=== PATIENT | male | born 1965 | race African-American/Black ===

== ENCOUNTER 2025-05-06 15:23 | Inpatient (IN) | payer OTHER ==
[2025-05-06] MEDS ORDERED: guaiFENesin 600 MG TABLET.ER (FP) PO PRN (15:26)
[2025-05-06] MEDS ORDERED: METHOCARBAMOL 500 MG TABLET PO PRN (15:26)
[2025-05-06] MEDS ORDERED: MAG HYDROX/AL HYDROX/SIMETH 30 ML UNIT-DOSE CUP PO PRN (15:26)
[2025-05-06] MEDS ORDERED: POLYETHYLENE GLYCOL (HEALTHYLAX) 3350 17 GM PACKET PO PRN (15:26)
[2025-05-06] MEDS ORDERED: IBUPROFEN 400 MG TABLET (FP) PO PRN (15:26)
[2025-05-06] MEDS ORDERED: MAGNESIUM HYDROX 2400MG/30ML ORAL SUSPENSION 30 ML CUP PO PRN (15:26)
[2025-05-06] MEDS ORDERED: BENZOCAINE/MENTHOL (CHLORASEPTIC ) LOZENGE MM PRN (15:26)
[2025-05-06] MEDS ORDERED: BENZONATATE 200 MG CAPSULE PO PRN (15:26)
[2025-05-06] MEDS ORDERED: IBUPROFEN 600 MG TABLET (FP) PO PRN (15:26)
[2025-05-06] MEDS ORDERED: LOPERAMIDE HCL 2 MG CAPSULE PO PRN (15:26)
[2025-05-06] MEDS: THIAMINE 100 MG TABLET PO SCH (21:42)
[2025-05-06] MEDS: MELATONIN 5 MG TABLETS PO SCH (21:42)
[2025-05-06] MEDS: ACETAMINOPHEN 325 MG TABLET (FP) PO PRN (21:43)
[2025-05-07] MEDS: PRENATAL VITAMINS W/ FOLIC ACID TABLET (FP) PO SCH (06:00)
[2025-05-07] MEDS ORDERED: NICOTINE POLACRILEX 4 MG GUM BUC PRN (14:09)
[2025-05-07] MEDS: NICOTINE 14 MG/24 HOURS TOPICAL PATCH TD SCH (14:53)
[2025-05-07] MEDS: amLODIPine BESYLATE 2.5 MG TABLET (FP) PO SCH (14:53)
[2025-05-07] MEDS: ALBUTEROL SO4 HFA INHALER IH PRN (14:54)
[2025-05-07] MEDS: MIRTAZAPINE 15 MG TABLET (FP) PO SCH (21:32)
[2025-05-08] MEDS: amLODIPine BESYLATE 2.5 MG TABLET (FP) PO ONE (15:01)
[2025-05-09] MEDS: amLODIPine BESYLATE 5 MG TABLET (FP) PO SCH (10:12)
[2025-05-10 20:42] VITALS: RESP 18
[2025-05-10] MEDS: hydrOXYzine PAMOATE 25 MG CAPSULE (FP) PO PRN (21:14)
[2025-05-12 09:13] VITALS: PULSE 74
[2025-05-12] MEDS: amLODIPine BESYLATE 5 MG TABLET (FP) PO SCH (11:24)
[2025-05-12 12:40] LABS: GLUCOSE,RANDOM 83 mg/dL (74-106); TOT PROT 8.0 g/dl (6.4-8.2)
[2025-05-12 12:41] LABS: CO2 28 mmol/L (21-32)
[2025-05-12 12:43] LABS: ALK PHOS 90 U/L (40-150)
[2025-05-12 12:46] LABS: CREATININE 3.51 mg/dL (0.55-1.3); SGOT/AST 19 U/L (5-34); SGPT/ALT 14 U/L (0-55)
[2025-05-12 13:34] VITALS: BP 149/83; TEMP 97.5
== END 2025-05-12 21:59 | disposition short-term general hospital (02) | DRG 772 ==
LOC: YASAS 15:23 → Y3NR 15:26 → Y3W 05-07 10:45
PROVIDERS: ADMIT Psychiatry & Neurology Pain Medicine; ATTEND Psychiatry & Neurology Pain Medicine
PROC: HZ42ZZZ Group Counseling for Substance Abuse Treatment, Cognitive-Behavioral (ICD-10-PCS; principal; 2025-05-06)
DX: F11.20 Opioid dependence, uncomplicated (principal); F14.20 Cocaine dependence, uncomplicated; F17.210 Nicotine dependence, cigarettes, uncomplicated; E87.5 Hyperkalemia; I12.9 Hypertensive chronic kidney disease with stage 1 through stage 4 chronic kidney disease, or unspecified chronic kidney disease; N18.9 Chronic kidney disease, unspecified; Z85.46 Personal history of malignant neoplasm of prostate; Z93.6 Other artificial openings of urinary tract status
CPT/HCPCS: 36415; 80053; 86803